=== PATIENT | male | born 1960 | race Caucasian/White ===

== ENCOUNTER 2017-01-04 18:51 | Emergency (ER) | payer MEDICAID ==
[~2017-01-04] VITALS: Ht 165.1 cm; Wt 74.8 kg
[2017-01-04 19:45] VITALS: BP 139/88
[2017-01-04] MEDS ORDERED: IBUPROFEN600 MG ORAL (19:47)
[2017-01-04] MEDS ORDERED: NORCO 5-325 TA1 EAC1 ORAL (19:47)
[2017-01-04 20:00] VITALS: BP 139/88
--- NOTE | 2017-01-04 21:51 | Emergency Room Report ---
History of Present Illness General Chief Complaint: Pain Source: Patient Present Illness HPI The patient is a 56-year-old male presenting for back pain. He states that he was seen at another hospital 3 days prior and admitted for an L1 compression fracture. States that he was discharged on jan 02 with a prescription for 10 [place] and states that medication has run out and pain is now a 10 out of 10 dull ache to the lower back. Worse with movement. Pain does not radiate. He denies any other symptoms including numbness, tingling, urinary incontinence, abd pain, CP, SOB Allergies: Coded Allergies: No Known Allergies (Unverified , 01/04/17) Patient History Past Medical History: see triage record Pertinent Family History: none Reviewed Nursing Documentation: PMH: Agreed, PSxH: Agreed Nursing Documentation-PMH Past Medical History: No History, Except For Review of Systems All Other Systems: negative except mentioned in HPI Physical Exam Vital Signs Date Time Temp Pulse Resp B/P (MAP) Pulse Ox O2 Delivery O2 Flow Rate FiO2 01/04/17 19:00 97.3 98 16 139/88 98 Room Air Sp02 EP Interpretation: reviewed, normal General Appearance: no apparent distress, alert, GCS 15, non-toxic Head: normocephalic, atraumatic Eyes: bilateral eye normal inspection, bilateral eye PERRL ENT: hearing grossly normal, normal pharynx, no angioedema, normal voice Neck: full range of motion, supple/symm/no masses Musculoskeletal: other - surgical scars to knees and L hip, tender - TTP over midline L spine Neurologic: alert, oriented x3, responsive, motor strength/tone normal, sensory intact, speech normal Psychiatric: judgement/insight normal, memory normal, mood/affect normal, no suicidal/homicidal ideation Skin: normal color, no rash, warm/dry, well hydrated Lymphatic: no adenopathy Medical Decision Making PA Attestation Dr. Sevilla is my supervising physician. Patient management was discussed with my supervising physician Diagnostic Impression: Primary Impression: Lumbar compression fracture Qualified Codes: S32.010D - Wedge compression fracture of first lumbar vertebra, subsequent encounter for fracture with routine healing ER Course The patient is a 56-year-old male presenting for back pain Ddx considered include but not limited to fracture, lumbar strain, degenerative disease, epidural abscess, cauda equina, chronic pain, narcotic dependency, among others PE: NAD TTP over the mid L spine consistent with fracture location. Able to ambulate slowly but well. SILT CURES report consistent with patient's history. No other recent prescriptions. The patient is given prescription for motrin and norco and needs to FU with PMD LARISA. ER precautions given Last Vital Signs Date Time Temp Pulse Resp B/P (MAP) Pulse Ox O2 Delivery O2 Flow Rate FiO2 01/04/17 20:00 97.3 16 139/88 98 Room Air 01/04/17 19:00 98 Status: improved Disposition: HOME, SELF-CARE Condition: Improved Scripts Hydrocodone Bit/Acetaminophen 5-325* (NORCO 5-325 TABLET*) 1 Each Tablet 1 TAB ORAL Q6HR Y for For Pain, #10 TAB Prov: JOVANY ODOM 01/04/17 Ibuprofen* (MOTRIN*) 600 Mg Tablet 600 MG ORAL Q8H Y for For Pain, #30 TAB 0 Refills Prov: JOVANY ODOM 01/04/17 Patient Instructions: Lumbar Fracture Additional Instructions: I discussed my findings with the patient. All questions and concerns have been answered. Treatment and medication compliance have been addressed. I advised the patient that they need to follow up with primary doctor as soon as possible. Return to Emergency dept if symptoms worsen, new symptoms arise such as numbness /tingling, worsening pain, urinary incontinence, or if needed for any reason. Patient verbalized understanding of discharge instructions. JOVANY ODOM Jan 04, 2017 21:51
== END 2017-01-04 20:10 | disposition home or self-care (01) ==
LOC: EMR 19:37
DX: S32.010D Wedge compression fracture of first lumbar vertebra, subsequent encounter for fracture with routine healing (principal); X58.XXXD Exposure to other specified factors, subsequent encounter
CPT/HCPCS: 99284

== ENCOUNTER 2017-01-08 01:18 | Emergency (ER) | payer MEDICAID ==
[~2017-01-08] VITALS: Ht 165.1 cm; Wt 72.6 kg
[~2017-01-08 01:18] MED LIST: IBUPROFEN600 MG ORAL; NKM; NORCO 5-325 TA1 EAC1 ORAL
[2017-01-08 01:20] VITALS: BP 166/88
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
[2017-01-08] MEDS ORDERED: Ketorolac 60mg Inj IM ONE (01:45)
[2017-01-08] MEDS ORDERED: Methocarbamol 500mg tab ORAL ONE (01:45)
[2017-01-08] MEDS ORDERED: oxyCODONE HCL/Acetaminophen 5/325mg ORAL ONE (01:45)
[2017-01-08 01:56] LABS: APPEARANCE,URINE CLEAR; KETONES,URINE NEGATIVE (NEGATIVE); LEUKOCYTE ESTERASE ,URINE 1+ (NEGATIVE); NITRITE,URINE NEGATIVE (NEGATIVE); PH,URINE 6.5 (4.5-8.0); PROTEIN,URINE NEGATIVE (NEGATIVE); UROBILINOGEN,URINE NORMAL MG/DL (0.0-1.0)
[2017-01-08 03:15] VITALS: BP 150/89
[2017-01-08 04:03] LABS: BACTERIA,URINE OCCASIONAL /HPF; SQUAMOUS EPITHELIAL CELL,UR OCCASIONAL /LPF (NONE/OCC); WBC,URINE 0-2 /HPF (0 - 0)
[2017-01-08 05:00] VITALS: BP 145/78
[2017-01-08] MEDS ORDERED: IBUPROFEN600 MG ORAL (06:42)
[2017-01-08] MEDS ORDERED: TYLENOL325 MG ORAL (06:42)
[2017-01-08] MEDS ORDERED: ROBAXIN500 MG PO (06:42)
[2017-01-08 06:50] VITALS: BP 139/86
[2017-01-08 07:00] VITALS: BP 139/86
== END 2017-01-08 07:00 | disposition home or self-care (01) ==
LOC: EDBD 01:18 → EMR 02:55
DX: S32.019D Unspecified fracture of first lumbar vertebra, subsequent encounter for fracture with routine healing (principal); V89.2XXD Person injured in unspecified motor-vehicle accident, traffic, subsequent encounter; F15.10 Other stimulant abuse, uncomplicated; F10.10 Alcohol abuse, uncomplicated
CPT/HCPCS: 80300; 81003; 96372; 99284